=== PATIENT | male | born 1965 | race Caucasian/White ===

== ENCOUNTER 2018-10-14 23:23 | Emergency (ER) | payer BC ==
[2018-10-14 23:44] LABS: Bilirubin Negative (Negative); Blood, Urine Large (Negative); Clarity CLEAR (Clear); Glucose, Urine (Dipstick) >=1000 mg/dL (Negative); Leukocyte Negative (Negative); Nitrite Negative (Negative); Protein, Urine (Dipstick) Negative (Neg-Trace); Specific Gravity, Urine 1.027 (1.002-1.036); Urobilinogen 0.2 mg/dL (0.2-1.0)
[2018-10-14 23:46] LABS: Bacteria/HPF None Seen HPF (None Seen); Hyaline Casts/LPF 0-3 HYALINE CAST LPF (0-3 Hyaline); RBC/HPF GREATER THAN 50-TNTC HPF (0-3); Squamous Epithelial None Seen HPF (0-3); WBC/HPF 0-3 HPF (0-3)
[2018-10-14] MEDS ORDERED: Morphine 4 MG/ML VIAL ONE (23:58)
[2018-10-14] MEDS ORDERED: Ondansetron PF 4 MG/2 ML Vial ONE (23:58)
[2018-10-14] MEDS ORDERED: Ketorolac Tromethamine 30 MG/ML VIAL ONE (23:58)
[2018-10-15] LABS: #Basophils 0.1 thou/uL (0.0-0.2); #Eosinphils 0.2 thou/uL (0.0-0.7); #Lymphocytes 2.4 thou/uL (1.20-3.40); %Basophils 0.6 % (0.0-1.0); %Eosinophils 1.5 % (0.0-10.0); %Lymphocytes 19.1 % (21.0-51.0); %Monocytes 7.7 % (0.0-10.0); %Neutrophils 71.2 % (42.0-75.0); Hemoglobin 13.1 g/dL (14.0-18.0); Mean Corpuscular HGB CONC 31.6 g/dL (32.0-36.0); Mean Corpuscular Hemoglobin 29.4 pg (27.0-31.0); Mean Platelet Volume 8.6 fL (7.4-10.4); Platelet Count 253 thou/uL (130-400); RBC Distribution Width 11.5 % (11.5-14.5); Red Blood Cell (RBC) Count 4.46 mill/uL (4.70-6.10); White Blood Cell (WBC) Count 12.6 thou/uL (4.8-10.8)
[2018-10-15] MEDS ORDERED: Morphine 4 MG/ML VIAL ONE (00:13)
[2018-10-15] MEDS ORDERED: Morphine 2 MG/ML SYRINGE ONE (00:14)
[2018-10-15 00:21] LABS: ALT (SGPT) 18 U/L (8-55); AST (SGOT) 19 U/L (5-34); Alkaline Phosphatase 99 U/L (40-150); Anion Gap 12 mmol/L (10-20); BUN (Urea Nitrogen) 24 mg/dL (8.4-25.7); Bilirubin, Total 0.2 mg/dL (0.2-1.2); Calc. Creatinine Clearance 0 mL/min (70-130); Calcium 9.2 mg/dL (7.8-10.44); Carbon Dioxide 17 mmol/L (22-29); Chloride 113 mmol/L (98-107); Estimated GFR-MDRD 44; Globulin 3.1 g/dL (2.4-3.5); Glucose 237 mg/dL (70-105); Potassium 4.1 mmol/L (3.5-5.1); Protein, Total 7.1 g/dL (6.0-8.3); Sodium 138 mmol/L (136-145)
--- NOTE | 2018-10-15 08:06 | CT ---
PRELIMINARY REPORT/[facility]/EMERGENCY AFTER HOURS PROCEDURE: EXAM: CT Abdomen and Pelvis Without Contrast EXAM DATE/TIME: 10/15/2018 12:16 AM CLINICAL HISTORY: 53 years old, male; Pain; Abdominal pain; Acute; Patient HX: 53 y/o m presents to ed C/O sudden onset of r CVA pain at 2000 tonight. PT with HX of nephrolithiasis, stating last stone he passed was x4 yr s ago and was "the size of an eraser head. " pain exacerbated by deep inspiration. Denies fever, chil ls, changes in bms, dysuria, hematuria, incr urinary frequency, testicular pain, testicular swelling. PT states last CT scan was x 4 yrs ago when he last passed a kidney stone. HX of appendectomy TECHNIQUE: Axial computed tomography images of the abdomen and pelvis without contrast. Coronal reformatted imag es were created and reviewed. COMPARISON: No relevant prior studies available. FINDINGS: Lower thorax: No acute findings. ABDOMEN: Liver: There is hepatomegaly. Gallbladder and bile ducts: Normal. No calcified stones. No ductal dilation. Pancreas: Normal. No ductal dilation. Spleen: Normal. No splenomegaly. Adrenals: Normal. No mass. Kidneys and ureters: There is a 7 cm simple cyst at the superior pole of the right kidney. There is a 3 mm calculus in the distal right ureter and a 5 mm calculus at the right ureterovesical junction wi th moderate right obstructive uropathy. There is additional nonobstructing bilateral nephrolithiasis. Stomach and bowel: Normal. No obstruction. No mucosal thickening. Appendix: The appendix is not visualized. PELVIS: Bladder: Unremarkable as visualized. Reproductive: Unremarkable as visualized. ABDOMEN and PELVIS: Intraperitoneal space: Normal. No free air. No significant fluid collection. Bones/joints: There are degenerative changes of the spine. Soft tissues: Unremarkable. Vasculature: Normal. No abdominal aortic aneurysm. Lymph nodes: Normal. No enlarged lymph nodes. IMPRESSION: There is a 3 mm calculus in the distal right ureter and a 5 mm calculus at the right ureterovesical j unction with moderate right obstructive uropathy. There is additional nonobstructing bilateral nephro lithiasis. Thank you for allowing us to participate in the care of your patient. Dictated and Authenticated by: Reynold Collier MD 10/15/2018 1:03 AM Central Time ([place] & [place]) FINAL REPORT CT STONE PROTOCOL: Date: 10/14/18 IMPRESSION: I agree with the preliminary report provided by Abby. There is distal right ureteral calculus causing moderate right hydronephrosis. There are bilateral re nal stones. There is a large superior pole right renal cyst. There is a smaller hypodensity within the superior p ole of the left kidney that is incompletely characterized, measuring 1.6 cm. Renal ultrasound of this abnormality is recommended. CODE T. POS: BH
== END 2018-10-15 02:58 | disposition home or self-care (01) ==
LOC: ERS 23:23
DX: N13.2 Hydronephrosis with renal and ureteral calculous obstruction (principal); E11.9 Type 2 diabetes mellitus without complications; I10 Essential (primary) hypertension; F17.220 Nicotine dependence, chewing tobacco, uncomplicated; Z79.4 Long term (current) use of insulin; Z79.899 Other long term (current) drug therapy
CPT/HCPCS: 74176; 80053; 81003; 81015; 85025; 96361; 96374; 96375; J1885; J2270; J2405